=== PATIENT | male | born 1955 | race Hispanic/Latino ===

== ENCOUNTER → 2024-01-14 | Outpatient (CLI) | payer OTHER ==
[~2024-01-14] MED LIST: AMLO5TAB4 PO; CHOL100046 PO; FAMO40TA7 PO; Folic Acid/Vitamin B Comp W-C PO; HYDR25 PO; LEVO75CA5 PO; METO50 PO; SODI650T PO; SPIR25TA PO; Sevelamer Hcl PO; TAMS-1 PO
== END | disposition home or self-care (01) ==
LOC: SHCH 11:41
PROVIDERS: ATTEND Internal Medicine Cardiovascular Disease
DX: I51.7 Cardiomegaly (principal); R00.1 Bradycardia, unspecified
CPT/HCPCS: 93306

== ENCOUNTER 2024-06-26 12:24 | Emergency (ER) | payer OTHER ==
[~2024-06-26] VITALS: Ht 177.8 cm; Wt 67.1 kg
[2024-06-26] MEDS ORDERED: AMOX1TAB16 PO (13:21)
[2024-06-26] MEDS ORDERED: CIPOTIC AD (13:21)
[2024-06-26 13:30] VITALS: BP 141/85; PULSE 60; RESP 20; O2SAT 99
== END 2024-06-26 14:08 | disposition home or self-care (01) ==
LOC: EDH 12:24
DX: H60.91 Unspecified otitis externa, right ear (principal); I10 Essential (primary) hypertension; Z79.899 Other long term (current) drug therapy; Z98.890 Other specified postprocedural states

== ENCOUNTER 2025-07-30 11:12 | Observation (INO) | payer OTHER ==
[~2025-07-30] VITALS: Ht 177.8 cm; Wt 65.9 kg
[~2025-07-30 11:12] MED LIST changes: +AMOX1TAB16 PO; +CIPOTIC AD; -LEVO75CA5 PO; +LEVO75CA6 PO; -TAMS-1 PO; +TAMS-55 PO
[2025-07-30 11:44] LABS: IMMATURE GRANULOCYTE ABSOLUTE 0.02 K/uL (0-1); NUCLEATED RED BLOOD CELLS 0.0 % (0.0-0.19); PLATELET COUNT (AUTO) 123 K/uL (130-400); RED BLOOD CELL COUNT(AUTO) 2.57 MIL/uL (4.50-6.20); RED CELL DISTRIBUTION WIDTH 15.6 % (11.0-15.5); WHITE BLOOD COUNT (AUTO) 4.7 K/uL (4.8-10.8)
[2025-07-30 12:12] LABS: GLOMERULAR FILTR. RATE CALC 4.0 mL/min (>90); GLUCOSE,RANDOM 140.0 mg/dL (70-105); SODIUM SERUM 134.0 mmol/L (136-145)
--- NOTE | 2025-07-30 12:24 | ERN ---
ED Note History of Present Illness Stated Complaint: SOB Chief Complaint: Shortness of Breath Time Seen by MD: 11:28 Time Seen by Midlevel: 11:30 Dictation: 70-year-old male with a history of hypertension, diabetes, polycystic kidney disease coming in with complaints of shortness a breath ongoing for one month. Patient states he had his PCP when the O2 sats were low and was sent here for further evaluation. Patient is complaining of bilateral leg swelling, shortness a breath on exertion. Patient states he is not on dialysis. Denies any fever, congestion, chest pain, chest discomfort. Allergies: Coded Allergies: No Known Allergies (Unverified Allergy, Unknown, 07/10/23) Home Meds Active Scripts Amoxicillin/Potassium Clav (Amox Tr-K Clv 875-125 mg Tab) 875 Mg-125 Mg Tablet, 1 EACH PO BID for 7 Days, #14 TAB 0 Refills Prov:CONNER LI 06/26/24 Ciprofloxacin/Hydrocortisone (Cipro Hc Otic Suspension) 0.2 %-1 % Drops.susp, 4 DROP AD BID for 5 Days, #10 ML Prov:CONNER LI 06/26/24 Sodium Bicarbonate (Sodium Bicarbonate) 650 Mg Tablet, 650 MG PO TID, #90 TAB 1 Refill Prov:SHAYY SIGALA MD 07/12/23 [Sevelamer Hcl] 800 MG/TAB TABLET No Conflict Check, 800 MG PO TIDMEALS, #90 1 Refill Prov:SHAYY SIGALA MD 07/12/23 Metoprolol Tartrate (Lopressor 50Mg Tab) 50 Mg Tab, 50 MG PO BID, #60 TAB 1 Refill Prov:SHAYY SIGALA MD 07/12/23 Hydralazine HCl (Apresoline) 25 Mg Tab, 25 MG PO TID, #90 TAB 1 Refill Prov:SHAYY SIGALA MD 07/12/23 [Folic Acid/Vitamin B Comp W-C] 1 CAP TAB No Conflict Check, 1 CAP PO Q24H, #30 1 Refill Prov:SHAYY SIGALA MD 07/12/23 Amlodipine Besylate (Norvasc 5Mg Tab) 5 Mg Tablet, 10 MG PO DAILY, #30 TAB 1 Refill Prov:SHAYY SIGALA MD 07/12/23 Sodium Bicarbonate (Sodium Bicarbonate) 650 Mg Tablet, 650 MG PO TID, #90 TAB 1 Refill Prov:SHAYY SIGALA MD 07/12/23 Reported Medications Cholecalciferol (Vitamin D3) (Vitamin D3) 25 Mcg Capsule, 25 MCG PO DAILY, CAP 07/10/23 Levothyroxine Sodium (Levothyroxine) 75 Mcg Capsule, 75 MCG PO DAILY, CAP 07/10/23 Spironolactone (Aldactone) 25 Mg Tablet, 12.5 MG PO DAILY, TAB 07/10/23 Tamsulosin HCl (Flomax) 0.4 Mg Cap.er.24h, 0.4 MG PO DAILY, CAPSULE.DR 07/10/23 Famotidine (Famotidine) 40 Mg Tablet, 40 MG PO DAILY, TAB 07/10/23 Past Medical History Past Medical History: Hypertension, Kidney Infection Additional Past Medical Hx: PKD Surgical History: Other Surgical History Other: HERNIATED DISC, HERNIA Social History: Negative, Lives with family Review of System Dictation Constitutional: Negative for fever,chills, and weight loss Eyes: Negative for injury, pain,redness, and discharge ENT: Negative for injury,pain or swelling Cardiovascular: Negative for chest pain, palpitations, and edema Respiratory: Complaining of shortness a breath Abdomen/GI: Negative for abdominal pain, nausea, vomiting, diarrhea, and constipation Back: Negative for injury and pain : Negative for injury, bleeding and discharge MS/Extremity: Negative for injury and deformity Skin: Negative for rash, and discoloration Neuro: Negative for headache, weakness, numbness, tingling, and seizure Psych: Negative for suicide ideation, homicidal ideation, and hallucinations Review of Systems: was completed Initial Vital Sign VS Vital Signs Date Time Temp Pulse Resp B/P (MAP) Pulse Ox O2 Delivery O2 Flow Rate FiO2 07/30/25 11:16 98.2 98 22 148/84 99 Room Air 07/30/25 12:42 0 21 Physical Exam Dictation General: awake, alert, NAD Head/Face: Normocephalic, atraumatic Eyes: PERRL, EOMI, vision at baseline, PERRLA, mild periorbital edema ENT: oral cavity clear, TMs clear, no signs of infection Neck: Trachea midline, supple, no nuchal rigidity Cardiovascular: RRR, normal S1/S2, No MRGs, no JVD, bilateral lower leg plus two pitting edema Respiratory: CTAB, no respiratory distress, No rales or wheezes Abdomen: Soft, non-tender, non-distended, normal bowel sounds, no guarding or rebound. Skin: Warm, dry, normal turgor, no rash MS/Extremity: Pulses equal, no cyanosis, neurovascular intact, FROM Neuro: COAx4, GCS 15, strength 5/5, CN 2-12 intact, normal cerebellar exam, normal gait, Psych: Normal behavior, mood, and affect normal Results (Laboratory/Radiology) Laboratory/Radiology Laboratory Tests Test 07/30/25 11:40 White Blood Count 4.7 K/uL (4.8-10.8) L Red Blood Count 2.57 MIL/uL (4.50-6.20) L Hemoglobin 7.2 g/dL (14.0-18.0) L Hematocrit 22.2 % (42-54) L Mean Corpuscular Volume 86.4 fL (79-99) Mean Corpuscular Hemoglobin 28.0 pg (27.0-33.0) Mean Corpuscular Hemoglobin Concent 32.4 g/dL (32.0-36.0) Red Cell Distribution Width 15.6 % (11.0-15.5) H Platelet Count 123 K/uL (130-400) L Mean Platelet Volume 10.5 fL (7.5-10.5) Immature Granulocyte % (Auto) 0.4 % (0-1) Neutrophils (%) (Auto) 77.8 % (40.0-77.0) H Lymphocytes (%) (Auto) 10.1 % (21.0-51.0) L Monocytes (%) (Auto) 7.7 % (3.0-13.0) Eosinophils (%) (Auto) 3.6 % (0.0-8.0) Basophils (%) (Auto) 0.4 % (0.0-5.0) Neutrophils # (Auto) 3.6 K/uL (1.8-7.7) Lymphocytes # (Auto) 0.5 K/uL (1.0-4.8) L Monocytes # (Auto) 0.4 K/uL (0.1-1.0) Eosinophils # (Auto) 0.17 K/uL (0.00-0.70) Basophils # (Auto) 0.02 K/uL (0.00-0.20) Absolute Immature Granulocyte (auto 0.02 K/uL (0-1) Nucleated Red Blood Cells 0.0 % (0.0-0.19) Sodium Level 134 mmol/L (136-145) L Potassium Level 4.1 mmol/L (3.5-5.1) Chloride Level 99 mmol/L (101-111) L Carbon Dioxide Level 13 mmol/L (21-32) L Blood Urea Nitrogen 117 mg/dL (7-18) *H Creatinine 12.4 mg/dL (0.5-1.3) *H Glomerular Filtration Rate Calc 4 mL/min (>90) Random Glucose 140 mg/dL (70-105) H Total Calcium 7.1 mg/dL (8.5-10.1) L B-Type Natriuretic Peptide 750 pg/mL (0-100) H Labs Reviewed?: Yes EKG Comment: EKGs done at 11:36 a.m.. Sinus or ectopic atrial rhythm with a rate of 73. Incomplete RBBB. No STEMI interpreted by ER MD X-RAY Comment: [place] [id number] [id number] IMAGING REPORT Signed PATIENT: ESMER HYDE MR#: [id number] : 1955 SEX: M AGE: 70 LOCATION: [facility] ORDER [id number] STATUS: REG ER REPORT#: [id number] SERVICE 1128 REASON: SOB ORDERING PHYSICIAN: MARYLOU DARNELL NP PROCEDURE: CXR1VW - CHEST 1VW EXAM: CR Chest, 1 View. CLINICAL HISTORY: SOB COMPARISON: 07/10/23 16:25 EDT CR - CHEST 1VW FINDINGS: LUNGS: There is no mass, infiltrate, or acute pulmonary abnormality. PLEURAL SPACES: No pleural effusion or pneumothorax. MEDIASTINUM: Mild to moderate cardiomegaly. Mediastinal contours within normal limits. BONES: No acute osseous abnormality. IMPRESSION: No acute cardiopulmonary pathology is evident. Mild to moderate cardiomegaly. /[place] DICTATED BY: FREDA CHARLES Jr., MD DATE: 07/30/251415 ELECTRONICALLY SIGNED BY: FREDA CHARLES Jr., MD DATE: 07/30/251415 ED Course ED Course Orders Procedure Category Date Status Time Cbc With Differential LAB 07/30/25 Complete 11:28 Basic Metabolic Panel LAB 07/30/25 Complete 11:28 B-Type Natriuretic LAB 07/30/25 Complete Peptide 11:28 Chest 1vw RAD 07/30/25 Resulted 11:28 12 Lead Ekg Tracing- EKG 07/30/25 Complete Technical 11:28 Type And Screen BBK 07/30/25 Logged 13:33 Furosemide 40mg Vial PHA 07/30/25 Complete (Lasix 40mg Vial) 13:33 Nephrology Consult CONPHYSVC 07/30/25 Transmitted 13:36 Rbc-No Active Bleeding BBK 07/30/25 Logged 13:36 Current Medications Medications (Trade) Dose Ordered Sig/Curly Route PRN Reason Start Time Stop Time Status Last Admin Dose Admin Furosemide (LASix 40MG VIAL) 40 mg ONCE STAT IV 07/30/25 13:33 07/30/25 13:39 DC Vital Signs Date Time Temp Pulse Resp B/P (MAP) Pulse Ox O2 Delivery O2 Flow Rate FiO2 07/30/25 12:42 98.2 98 20 141/82 99 Room Air* 0 21 07/30/25 11:16 98.2 98 22 148/84 99 Room Air Medical Decision Making MDM MDM: 70-year-old male with a history of hypertension, diabetes, polycystic kidney disease coming in with complaints of shortness a breath ongoing for one month. Patient states he had his PCP when the O2 sats were low and was sent here for further evaluation. Patient is complaining of bilateral leg swelling, shortness a breath on exertion. Patient states he is not on dialysis. Denies any fever, congestion, chest pain, chest discomfort. CBC shows leukocytopenia, normocytic anemia hemoglobin of 7.2 and a hematocrit is 22. Thrombocytopenia at 123. Chemistry shows mild hyponatremia at 1:34 a.m.. Elevated BUN and creatinine creatinine is 12 and BUN is 117. This is consistent with the patient's previous history of polycystic kidney disease however has worsened from previous visit few years ago. BNP is 750. Lasix ordered in the emergency room along with 1 unit of PRBCs. Thirteen 40 spoke to cotton sampler on-call mare Shah to give him blood transfusion and admit patient and they will consult with the him up stairs. 1352 spoke to HEALTH SAFETY SPECIALIST for hospitalist team. Okay to admit. Differential diagnosis: Fluid overload, anemia, electrolyte abnormality, ESRD Rationale: Tests considered and ordered secondary to shared decision making include: labs, ECG and radiology Previous outside records reviewed: Old ER visits. Risk of complication and/or morbidity or mortality of patient management: None Medications-Per medication reconciliation Need for hospitalization: Patient does meet criteria for hospitalization. Need for emergency major/minor surgery: No There are no social concerns with this patient. Prescription drug management Prescriptions will include symptomatic care Patient's prior external medical records from other ER visits were reviewed by me as indicated. Prior testing and results from previous visits were reviewed. Prior tests were taken into account with medical decision making and resource utilization, independent historian/historians were used to obtain complete medical history. I independently interpreted the test that were performed, results were reviewed by me and considered findings on radiology if ordered. Medical management and examination interpretation discussions were had by me with other qualified healthcare professionals as indicated for the patient's care. DX & DISP Disposition: Inpatient Decision to Admit Date: Jul 30, 2025 Decision to Admit Time: 13:53 Departure Impression: Primary Impression: Polycystic kidney disease Additional Impressions: Anemia, Fluid overload, Shortness of breath Condition: Stable Referrals: AYDIN DUGAN (PCP) I have reviewed the case, and I agree with, Diagnosis and Plan MARYLOU DARNELL NP Jul 30, 2025 12:24
[2025-07-30 12:36] LABS: CREATININE 12.4 mg/dL (0.5-1.3); UREA NITROGEN, BLOOD 117.0 mg/dL (7-18)
--- NOTE | 2025-07-30 13:02 | EKG ---
[facility] Test Date: 2025-07-30 Test Time: 11:36:35 Pat Name: ESMER HYDE Department: EDH Room: ED Gender: M Manager Asset: [id number] : 1955 Requested By: MARYLOU DARNELL Order Number: [id number] Reading MD: Davis Hubbard Measurements Intervals [place] Rate: 73 P: 249 FL: 151 QRS: -40 QRSD: 108 T: 29 QT: 449 QTc: 493 Interpretive Statements Sinus or ectopic atrial rhythm Incomplete RBBB and LAFB Compared to ECG 07/10/2023 10:50:47 Ectopic atrial rhythm now present Sinus rhythm no longer present Electronically Signed On 07-30-2025 20:29:41 CDT by Davis Hubbard Please click the below link to view image of tracing.
--- NOTE | 2025-07-30 13:17 | HMCIMG ---
EXAM: CR Chest, 1 View. CLINICAL HISTORY: SOB COMPARISON: 07/10/23 16:25 EDT CR - CHEST 1VW FINDINGS: LUNGS: There is no mass, infiltrate, or acute pulmonary abnormality. PLEURAL SPACES: No pleural effusion or pneumothorax. MEDIASTINUM: Mild to moderate cardiomegaly. Mediastinal contours within normal limits. BONES: No acute osseous abnormality. IMPRESSION: No acute cardiopulmonary pathology is evident. Mild to moderate cardiomegaly. /[place]
[2025-07-30] MEDS ORDERED: MAGNESIUM 2GM PREMIX 50ML 50 ML IV PRN (14:00)
[2025-07-30] MEDS ORDERED: GLUCAGON 1MG KIT 1 MG ML IM PRN (14:00)
[2025-07-30] MEDS ORDERED: DEXTROSE 50%-WATER 50 ML DISP.SYRIN IV PRN (14:00)
--- NOTE | 2025-07-30 14:00 | NUR ---
DR ADLER AT BEDSIDE
--- NOTE | 2025-07-30 14:21 | HP ---
[facility] HISTORY AND PHYSICAL Date of Service: Jul 30, 2025 Time of Service: 14:[address] Bowman Allergies : NKA Attending : Dr Aiken HISTORY OF PRESENT ILLNESS: [ Pt is 69 years old male with past medical history of DM, Htn, hld, polycystic kidney disease, CKD refusing dialysis, BPH, hypothyroidism, , lower back sx, sinusitis, who came to ER with complain of shortness of breath for past 1 month. As per pt, he was at his PCP, where he was advised to go to ER for further evaluation of SOB and possibly blood transfusion. Patient is also complaining of bilateral leg swelling. Patient stated that he is not on dialysis, and refuses. Patient denies any fever, congestion, chest pain or any other discomfort other than SOB. Most recent VS 98.2 F, Pulse 98, respiratory 20, BP 141/82.Na 134 K 4.1 CO2 13 [id number] Cr12.4 GFR 4 Glucose 140 BNP 750 WBC 4.7 Hgb 7.2 Hct 22.2 Pltt 123 CXRAy mild to moderate cardiomegaly. Pt will be admitted under hospitalist care for further evaluation and recommendations. Dr Smith denitrator operator was consulted for CKD in need of dialysis.] REVIEW OF SYSTEMS CONSTITUTIONAL: Denies fevers, chills, or night sweats. No unintentional weight loss reported. NEUROLOGICAL: Denies headache, amaurosis fugax, motor weakness, sensory deficit, vertigo/spinning sensation, gait abnormalities, or tremors. ENT: No hearing loss, otalgia, otorrhea, rhinitis, rhinorrhea, hoarseness, or sore throat. CARDIOVASCULAR: Denies any exertional angina, dyspnea on exertion, orthopnea, paroxysmal nocturnal dyspnea, palpitations, life-threatening arrhythmias, claudication. PULMONARY: Denies any cough, phlegm/sputum, hemoptysis, pleuritic chest pain. Complains of shortness of breath SLEEP: Denies morning headaches, daytime somnolence or napping. Denies difficulty falling asleep, staying asleep, waking from sleep. Denies knowledge of snoring. GASTROINTESTINAL: Denies any type of dysphagia to either liquids or solids. Denies nausea, vomiting, pyrosis, early satiety, abdominal pain, diarrhea, constipation, or changes in stool consistency or caliber. Denies coffee-ground emesis, hematemesis, hematochezia, or melanotic stools. GENITOURINARY: Denies frequency, urgency, nocturia, hematuria or incontinence (Storage/Irritative symptoms.) Low urinary stream, straining to void, urinary intermittency or hesitancy, splitting of the voiding stream, terminal dribbling. ENDOCRINOLOGIC: Denies polyuria, polydipsia, polyphagia or heat/cold intolerances. HEMATOLOGIC: Denies thrombophilia/previous clots, or coagulopathy/bleeding disorders. ONCOLOGIC: Denies personal history of malignancy. DERMATOLOGIC: Denies rashes or pruritus. PSYCHIATRIC: Denies any suicidal or homicidal ideation. Denies hallucinations. PAST MEDICAL HISTORY: [ Htn, Hld, policystic KD, BPH, hypothyroidism, maxillary sinusitis ] PAST SURGICAL HISTORY: [ lower back pain sx for herniated disc in 1989 ] PAST SOCIAL HISTORY: [ PAtient denies smoking, drug illicit, drug illicit ] FAMILY HISTORY: [denies any ] Coded Allergies: No Known Allergies (Unverified Allergy, Unknown, 07/10/23) PHYSICAL EXAM GENERAL APPEARANCE: The patient is awake, alert, and oriented, in no acute cardiopulmonary distress. NEUROLOGICAL: Cranial nerves II-XII grossly intact. Motor is 5/5 in bilateral upper and lower extremities proximal to distal. No sensory deficits. HEENT: Face is symmetric. Pupils are equal and reactive. Extraocular movements are intact. NECK: Supple. No JVD. No thyromegaly. No submental, submandibular, pre- /postauricular, occipital or supraclavicular lymphadenopathy. CHEST: Normal chest expansion. No Telemetry. LUNGS: Absence of any rales, rhonchi or any wheezing. CARDIOVASCULAR: Regular. S1 and S2 normal. No appreciable rubs, murmurs or gallops. ABDOMEN: Soft, nontender, and nondistended. There is no rebound, voluntary guarding, or rigidity. : Deferred. No Alexander. EXTREMITIES: Non-edematous and not cyanotic. No clubbing. Good capillary refill. SKIN: No skin breakdown. Vital Sign (Last 24 Hours) 07/30/25 12:42 Temp 98.2 Pulse 98 Resp 20 B/P (MAP) 141/82 Pulse Ox 99 O2 Delivery Room Air* O2 Flow Rate 0 FiO2 21 LABS: Laboratory: Test 07/30/25 11:40 Range/Units White Blood Count 4.7 L 4.8-10.8 K/uL Red Blood Count 2.57 L 4.50-6.20 MIL/uL Hemoglobin 7.2 L 14.0-18.0 g/dL Hematocrit 22.2 L 42-54 % Mean Corpuscular Volume 86.4 79-99 fL Mean Corpuscular Hemoglobin 28.0 27.0-33.0 pg Mean Corpuscular Hemoglobin Concent 32.4 32.0-36.0 g/dL Red Cell Distribution Width 15.6 H 11.0-15.5 % Platelet Count 123 L 130-400 K/uL Mean Platelet Volume 10.5 7.5-10.5 fL Immature Granulocyte % (Auto) 0.4 0-1 % Neutrophils (%) (Auto) 77.8 H 40.0-77.0 % Lymphocytes (%) (Auto) 10.1 L 21.0-51.0 % Monocytes (%) (Auto) 7.7 3.0-13.0 % Eosinophils (%) (Auto) 3.6 0.0-8.0 % Basophils (%) (Auto) 0.4 0.0-5.0 % Neutrophils # (Auto) 3.6 1.8-7.7 K/uL Lymphocytes # (Auto) 0.5 L 1.0-4.8 K/uL Monocytes # (Auto) 0.4 0.1-1.0 K/uL Eosinophils # (Auto) 0.17 0.00-0.70 K/uL Basophils # (Auto) 0.02 0.00-0.20 K/uL Absolute Immature Granulocyte (auto 0.02 0-1 K/uL Nucleated Red Blood Cells 0.0 0.0-0.19 % Sodium Level 134 L 136-145 mmol/L Potassium Level 4.1 3.5-5.1 mmol/L Chloride Level 99 L 101-111 mmol/L Carbon Dioxide Level 13 L 21-32 mmol/L Blood Urea Nitrogen 117 *H 7-18 mg/dL Creatinine 12.4 *H 0.5-1.3 mg/dL Glomerular Filtration Rate Calc 4 >90 mL/min Random Glucose 140 H 70-105 mg/dL Total Calcium 7.1 L 8.5-10.1 mg/dL B-Type Natriuretic Peptide 750 H 0-100 pg/mL Current Medications Medications (Trade) Dose Ordered Sig/Curly Route PRN Reason Start Time Stop Time Status Last Admin Dose Admin Acetaminophen (TYLenol 325MG TAB) 650 mg Q4H PRN PO MILD PAIN (1-3) 07/30/25 14:30 08/29/25 14:29 Acetaminophen (TYLenol 325MG TAB) 650 mg Q6H PRN PO TEMPERATURE GREATER THAN 101.5 07/30/25 14:30 08/29/25 14:29 Al Hydroxide/Mg Hydroxide (MAALox PLUS 30ML) 30 ml Q6H PRN PO INDIGESTION 07/30/25 14:30 08/29/25 14:29 Dextrose (D50w) 50 ml AD PRN IV HYPOGLYCEMIA PROTOCOL 07/30/25 14:00 08/29/25 13:59 Diphenhydramine HCl (BENAdryl INJ) 25 mg Q6H PRN IV SEVERE ITCHING/RASH 07/30/25 14:30 08/29/25 14:29 Famotidine (Pepcid 20mg Vial) 20 mg BID PRN IV NAUSEA/VOMITING 07/30/25 14:30 07/30/25 14:11 DC Famotidine (Pepcid 20mg Vial) 20 mg Q48H IV 07/30/25 21:00 08/29/25 20:59 Furosemide (LASix 40MG VIAL) 40 mg ONCE STAT IV 07/30/25 13:33 07/30/25 13:39 DC 07/30/25 14:01 40 MG Glucagon (Glucagon 1mg Kit) 1 mg AD PRN IM HYPOGLYCEMIA PROTOCOL 07/30/25 14:00 08/29/25 13:59 Guaifenesin/ Dextromethorphan (RobiTUSSin DM 200/20MG 10ML) 10 ml Q4H PRN PO COUGH 07/30/25 14:30 08/29/25 14:29 Hydralazine HCl (APRESOLine 20MG INJ) 10 mg Q6H PRN IV For:SBP above 160;DBP above 90 07/30/25 14:30 08/29/25 14:29 Insulin Human Regular (humuLIN R 100 UNIT/ML 3ML) INSULIN SLIDING SCAL... ACHS SQ 07/30/25 16:30 08/29/25 16:29 Lactulose (Constulose 20gm/ 30ml Udcup) 20 gm BID PRN PO CONSTIPATION 07/30/25 14:30 08/29/25 14:29 Magnesium Sulfate 50 ml @ 0 mls/hr PROTOCOL PRN IV other 07/30/25 14:00 08/29/25 13:59 Nitroglycerin (Nitrostat) 0.4 mg PROTOCOL PRN SL CHEST PAIN 07/30/25 14:30 08/29/25 14:29 Ondansetron HCl (zoFRAN 4MG INJ) 4 mg Q6H PRN IV NAUSEA/VOMITING 07/30/25 14:30 08/29/25 14:29 Zolpidem Tartrate (AmbIEN) 5 mg HS PRN PO INSOMNIA 07/30/25 14:30 08/29/25 14:29 DIAGNOSTICS / RADIOLOGY: [ ] ASSESSMENT: [ Acute hypoxic Respiratory Failure POA Fluid Overload POA loida on CKD in need of dialysis POA acute blood loss requiring 1 prbc transfusion POA multifactorial anemia POA uncontrolled hypertension POA electrolite imbalance Na 134 POA polycystic kidney disease POA hypothyroidism POA maxillry sinusis BPH ] PLAN: [ Patient admitted to medical-surgical floor with telemetry Director Information consulted for possible dialysis A.m. labs Urinalysis pending Urine culture pending Chest x-ray showed mild to moderate cardiomegaly 2D echo pending One PRBC to be completed in ER during admission PT ordered Case management ordered PRN medication ordered Home medication to be reconciled once entered by RN to the system ] 1 prbc transfusion 07/30/25 in er ADVANCED CARE PLANNING 1. Which of the following were discussed? Hospice Care - Yes / No Therapeutic options - Yes / No Advance Directives - Yes / No Other discussions - 2. Discussed with who? Patient 3. Voluntary nature of this service was explained to the patient? Yes / No 4. Amount of time spent - __ more than 35 minutes 5. Reviewed by Physician? (if this service was performed by NPP) Yes / No ATTESTATION BY PHYSICIAN I have seen and examined the patient. I reviewed the documentation, medical decision making, and treatment plan as noted by the mid-level provider above. I agree with the findings and plan of care. SHAYY AIKEN MD, KATARZYNA B TELESCOPE REPAIRER Jul 30, 2025 14:21
[2025-07-30] MEDS ORDERED: guaiFENesin-DM 200/20MG 10ML PO PRN (14:30)
[2025-07-30] MEDS ORDERED: LACTULOSE 20 GM/30 ML UDCUP PO PRN (14:30)
[2025-07-30] MEDS ORDERED: MAG/ALUM/SIMETH 30 ML UDCUP PO PRN (14:30)
[2025-07-30] MEDS ORDERED: NITROGLYCERIN 0.4 MG SL TAB SL PRN (14:30)
[2025-07-30] MEDS ORDERED: FAMOTIDINE 20MG VIAL IV PRN (14:30)
--- NOTE | 2025-07-30 14:54 | CONS ---
NEPHROLOGY CONSULTATION NOTE Date/Time Patient Seen: Jul 30, 2025 2066 Reason for Consultation: Renal failure HISTORY OF PRESENT ILLNESS: This is a 69 years old male with past medical history of DM, Htn, hld, polycystic kidney disease, CKD, BPH, hypothyroidism, , lower back sx, sinusitis, He presented to the ER with complain of shortness of breath for past 1 month. As per pt, he was at his PCP, where he was advised to go to ER for further evaluation of SOB and possibly blood transfusion. Patient is also complaining of bilateral leg swelling. Patient stated that he is not on dialysis, and refuses. Patient denies any fever, congestion, chest pain or any other discomfort other than SOB. We are consulted for renal failure Renal function remains elevated Electrolytes are stable. Anemia was noted He was seen in the emergency room, continues to complain of shortness of breath Family at the bedside Prognosis remains guarded REVIEW OF SYSTEMS: GENERAL: Positive for shortness of breath and lower extremity edema NEUROLOGIC: Negative for any blurry vision, blind spots, double vision, facial asymmetry, dysphagia, dysarthria, hemiparesis, hemisensory deficits, vertigo, ataxia. HEENT: Negative for any head trauma, neck trauma, neck stiffness, photophobia, phonophobia, sinusitis, rhinitis. CARDIAC: Negative for any chest pain, dyspnea on exertion, paroxysmal nocturnal dyspnea, peripheral edema. PULMONARY: Negative for any shortness of breath, wheezing, COPD, or TB exposure. GASTROINTESTINAL: Negative for any abdominal pain, nausea, vomiting, bright red blood per rectum, melena. GENITOURINARY: Negative for any dysuria, hematuria, incontinence. INTEGUMENTARY: Negative for any rashes, cuts, insect bites. RHEUMATOLOGIC: Negative for any joint pains, photosensitive rashes, history of vasculitis or kidney problems. HEMATOLOGIC: Negative for any abnormal bruising, frequent infections or bleeding. PAST MEDICAL HISTORY: DM, hypertension, hyperlipidemia, polycystic kidney disease, CKD PAST SURGICAL HISTORY: Back surgery for herniated disc PAST SOCIAL HISTORY: Denies use of alcohol, tobacco or illicit drugs FAMILY HISTORY: Noncontributory PHYSICAL EXAM: GENERAL: Alert and oriented x 3. No acute distress. Well-nourished. EYES: EOMI. Anicteric. HENT: Moist mucous membranes. No scleral icterus. No cervical lymphadenopathy. LUNGS: Clear to auscultation bilaterally. No accessory muscle use. CARDIOVASCULAR: Regular rate and rhythm. No murmur. No JVD. ABDOMEN: Soft, non-tender and non-distended. No palpable masses. EXTREMITIES: No edema. Non-tender. SKIN: No rashes or lesions. Warm. NEUROLOGIC: No focal neurological deficits. CN II-XII grossly intact, but not individually tested. PSYCHIATRIC: Cooperative. Appropriate mood and affect. MEDICATIONS: [ ] Current Medications Medications (Trade) Dose Ordered Sig/Curly Route PRN Reason Start Time Stop Time Status Last Admin Dose Admin Acetaminophen (TYLenol 325MG TAB) 650 mg Q4H PRN PO MILD PAIN (1-3) 07/30/25 14:30 08/29/25 14:29 Acetaminophen (TYLenol 325MG TAB) 650 mg Q6H PRN PO TEMPERATURE GREATER THAN 101.5 07/30/25 14:30 08/29/25 14:29 Al Hydroxide/Mg Hydroxide (MAALox PLUS 30ML) 30 ml Q6H PRN PO INDIGESTION 07/30/25 14:30 08/29/25 14:29 Dextrose (D50w) 50 ml AD PRN IV HYPOGLYCEMIA PROTOCOL 07/30/25 14:00 08/29/25 13:59 Diphenhydramine HCl (BENAdryl INJ) 25 mg Q6H PRN IV SEVERE ITCHING/RASH 07/30/25 14:30 08/29/25 14:29 Famotidine (Pepcid 20mg Vial) 20 mg BID PRN IV NAUSEA/VOMITING 07/30/25 14:30 07/30/25 14:11 DC Famotidine (Pepcid 20mg Vial) 20 mg Q48H IV 07/30/25 21:00 08/29/25 20:59 Furosemide (LASix 40MG VIAL) 40 mg ONCE STAT IV 07/30/25 13:33 07/30/25 13:39 DC 07/30/25 14:01 40 MG Glucagon (Glucagon 1mg Kit) 1 mg AD PRN IM HYPOGLYCEMIA PROTOCOL 07/30/25 14:00 08/29/25 13:59 Guaifenesin/ Dextromethorphan (RobiTUSSin DM 200/20MG 10ML) 10 ml Q4H PRN PO COUGH 07/30/25 14:30 08/29/25 14:29 Hydralazine HCl (APRESOLine 20MG INJ) 10 mg Q6H PRN IV For:SBP above 160;DBP above 90 07/30/25 14:30 08/29/25 14:29 Insulin Human Regular (humuLIN R 100 UNIT/ML 3ML) INSULIN SLIDING SCAL... ACHS SQ 07/30/25 16:30 08/29/25 16:29 Lactulose (Constulose 20gm/ 30ml Udcup) 20 gm BID PRN PO CONSTIPATION 07/30/25 14:30 08/29/25 14:29 Magnesium Sulfate 50 ml @ 0 mls/hr PROTOCOL PRN IV other 07/30/25 14:00 08/29/25 13:59 Nitroglycerin (Nitrostat) 0.4 mg PROTOCOL PRN SL CHEST PAIN 07/30/25 14:30 08/29/25 14:29 Ondansetron HCl (zoFRAN 4MG INJ) 4 mg Q6H PRN IV NAUSEA/VOMITING 07/30/25 14:30 08/29/25 14:29 Zolpidem Tartrate (AmbIEN) 5 mg HS PRN PO INSOMNIA 07/30/25 14:30 08/29/25 14:29 Vital Signs (last 8hr) Date Time Temp Pulse Resp B/P (MAP) Pulse Ox O2 Delivery O2 Flow Rate FiO2 07/30/25 14:39 98.2 74 20 158/81 99 Room Air* 0 21 07/30/25 12:42 98.2 98 20 141/82 99 Room Air* 0 21 07/30/25 11:16 98.2 98 22 148/84 99 Room Air DIAGNOSTICS / RADIOLOGY: [place] [id number] IMAGING REPORT Signed PATIENT: ESMER HYDE MR#: [id number] : 1955 SEX: M AGE: 70 LOCATION: [facility] ORDER 1130 STATUS: REG ER REPORT#: [id number] SERVICE 1128 REASON: SOB ORDERING PHYSICIAN: MARYLOU DARNELL NP PROCEDURE: CXR1VW - CHEST 1VW EXAM: CR Chest, 1 View. CLINICAL HISTORY: SOB COMPARISON: 07/10/23 16:25 EDT CR - CHEST 1VW FINDINGS: LUNGS: There is no mass, infiltrate, or acute pulmonary abnormality. PLEURAL SPACES: No pleural effusion or pneumothorax. MEDIASTINUM: Mild to moderate cardiomegaly. Mediastinal contours within normal limits. BONES: No acute osseous abnormality. IMPRESSION: No acute cardiopulmonary pathology is evident. Mild to moderate cardiomegaly. /[place] DICTATED BY: FREDA CHARLES Jr., MD DATE: 07/30/251415 ELECTRONICALLY SIGNED BY: FREDA CHARLES Jr., MD DATE: 07/30/251415 LABORATORY: [ ] Hematology Labs: Test 07/30/25 11:40 Range/Units White Blood Count 4.7 L 4.8-10.8 K/uL Red Blood Count 2.57 L 4.50-6.20 MIL/uL Hemoglobin 7.2 L 14.0-18.0 g/dL Hematocrit 22.2 L 42-54 % Mean Corpuscular Volume 86.4 79-99 fL Mean Corpuscular Hemoglobin 28.0 27.0-33.0 pg Mean Corpuscular Hemoglobin Concent 32.4 32.0-36.0 g/dL Red Cell Distribution Width 15.6 H 11.0-15.5 % Platelet Count 123 L 130-400 K/uL Mean Platelet Volume 10.5 7.5-10.5 fL Immature Granulocyte % (Auto) 0.4 0-1 % Neutrophils (%) (Auto) 77.8 H 40.0-77.0 % Lymphocytes (%) (Auto) 10.1 L 21.0-51.0 % Monocytes (%) (Auto) 7.7 3.0-13.0 % Eosinophils (%) (Auto) 3.6 0.0-8.0 % Basophils (%) (Auto) 0.4 0.0-5.0 % Neutrophils # (Auto) 3.6 1.8-7.7 K/uL Lymphocytes # (Auto) 0.5 L 1.0-4.8 K/uL Monocytes # (Auto) 0.4 0.1-1.0 K/uL Eosinophils # (Auto) 0.17 0.00-0.70 K/uL Basophils # (Auto) 0.02 0.00-0.20 K/uL Absolute Immature Granulocyte (auto 0.02 0-1 K/uL Nucleated Red Blood Cells 0.0 0.0-0.19 % Chemistry Labs: Test 07/30/25 11:40 Range/Units Sodium Level 134 L 136-145 mmol/L Potassium Level 4.1 3.5-5.1 mmol/L Chloride Level 99 L 101-111 mmol/L Carbon Dioxide Level 13 L 21-32 mmol/L Blood Urea Nitrogen 117 *H 7-18 mg/dL Creatinine 12.4 *H 0.5-1.3 mg/dL Glomerular Filtration Rate Calc 4 >90 mL/min Random Glucose 140 H 70-105 mg/dL Total Calcium 7.1 L 8.5-10.1 mg/dL B-Type Natriuretic Peptide 750 H 0-100 pg/mL ASSESSMENT: Patient has worsening anemia shortness of breath renal failure and multiple comorbidities Anemia fluid overload and patient may have end-stage renal disease patient is noncompliant Acute on chronic renal failure Polycystic kidney disease Diabetes mellitus type 2 Hypertension Hyperlipidemia BPH Hypothyroidism PLAN: Labs, diagnostic, radiologic exams reviewed and interpreted by myself and supervising physician. We have reviewed external records in detail Patient is not ready to start renal replacement therapy at this time patient understand consequences including Preserve nondominant arm. Start Lasix 80 mg IV b.i.d. Start Nephro-Shoshana daily Order UA Require close monitoring of renal function and electrolytes Order CBC, CMP, uric acid, TSH, iron panel, ferritin, and electrolytes in am Renal diabetic diet BiPAP as necessary, for respiratory distress Monitor blood pressure adjust medication doses as needed Avoid hypotensive episodes May use Dilaudid 0.5 mg IV every 6 hours as needed for severe pain Monitor blood sugars Strict intake, output, and daily weight should be monitored Please renally adjust medications Avoid nephrotoxic and nonsteroidal drugs Avoid contrast if possible Will continue to monitor renal function, anemia, electrolytes Treatment plan discussed with patient Questions were answered We have discussed with the other team physicians in detail about the care plan We will continue to monitor the patient closely Thank you for allowing us to participate in the care of this patient ATTESTATION BY PHYSICIAN I have seen and examined the patient. I reviewed the documentation, medical decision making, and treatment plan as noted by the mid-level provider above. I agree with the findings and plan of care. BREONNA ADLER MD, ELIZABETH BOX PULLER Jul 30, 2025 14:54 BREONNA ADLER MD Aug 03, 2025 06:49
--- NOTE | 2025-07-30 14:56 | NUR ---
DCP: HOME met with pt and his daughter Kasi Marinelli [phone]. Pt lives a home with Fidelina Marinelli [phone]. Pt gets $20.00 in food stamps. Pt reports he has a difficult time completing his ADLS on his own, but does not want assistance just yet. Pt uses a cane "when I need to". Has no HH or HD services. Discussed SNF at [facility], pt is not open to it at this time. PCP is Williams Garcia and uses [facility] for rx. Addendum: 07/30/25 at 1505 by LACHO COX Amended: Links added.
[2025-07-30 14:57] LABS: APPEARANCE,URINE CLEAR (CLEAR); GLUCOSE, URINE (UA) 70 mg/dL (NEGATIVE); LEUKOCYTE ESTERASE ,URINE NEGATIVE Leu/uL (NEGATIVE); NITRATE,URINE NEGATIVE (NEGATIVE); OCCULT BLOOD,URINE +- (TRACE) (NEGATIVE)
[2025-07-30 15:05] LABS: SQUAMOUS EPITHELIAL CELL,UR RARE /HPF (0-2)
[2025-07-30 15:10] LABS: COVID19 (SARS ANTIGEN RAPID) PRESUMPTIVE NEGATIVE (NEGATIVE); INFLUENZA TYPE A Negative For Type A (NEGATIVE); INFLUENZA TYPE B Negative For Type B (NEGATIVE)
--- NOTE | 2025-07-30 21:30 | NUR ---
1 UNIT OF PRBCS TRANSFUSION COMPLETED AT THIS TIME, PATIENT IS IN NO DISTRESS
[2025-07-30] MEDS: FAMOTIDINE 20MG VIAL IV SCH (21:35)
[2025-07-30] MEDS ORDERED: CHOL200074 PO (22:18)
[2025-07-30] MEDS ORDERED: AMLO-258 PO (22:21)
[2025-07-30] MEDS ORDERED: METO-391 PO (22:21)
[2025-07-31 05:46] LABS: IMMATURE GRANULOCYTE ABSOLUTE 0.05 K/uL (0-1); NUCLEATED RED BLOOD CELLS 0.0 % (0.0-0.19); PLATELET COUNT (AUTO) 120 K/uL (130-400); RED BLOOD CELL COUNT(AUTO) 2.60 MIL/uL (4.50-6.20); RED CELL DISTRIBUTION WIDTH 15.7 % (11.0-15.5); WHITE BLOOD COUNT (AUTO) 5.7 K/uL (4.8-10.8)
[2025-07-31 07:18] LABS: % IRON SATURATION 16.0 % (30-44); IRON, SERUM 26.0 mcg/dL (65-175)
[2025-07-31 07:24] LABS: ASPARTATE AMINOTRANSFERASE 17.0 U/L (10-37); CREATINE KINASE, TOTAL 115.0 U/L (21-232); GLOMERULAR FILTR. RATE CALC 4.0 mL/min (>90); GLUCOSE,RANDOM 66.0 mg/dL (70-105); PHOSPHORUS 8.5 mg/dL (2.5-4.9); SODIUM SERUM 134.0 mmol/L (136-145); TOTAL PROTEIN, SERUM 6.7 g/dL (6.0-8.3)
[2025-07-31 07:26] LABS: CREATININE 12.2 mg/dL (0.5-1.3); UREA NITROGEN, BLOOD 118.0 mg/dL (7-18)
--- NOTE | 2025-07-31 08:47 | NUR ---
DR ZAID ARRIETA AT BEDSIDE
--- NOTE | 2025-07-31 08:50 | NUR ---
PT REQUESTING TO BE DNR. DR SIGALA AWARE AND AT BEDSIDE.
--- NOTE | 2025-07-31 08:51 | NUR ---
PT REFUSING DIALYSIS. FORM HAS BEEN SIGNED FOR TREATMENT REFUSAL.
[2025-07-31] MEDS ORDERED: CHOLECALCIFEROL PO SCH (09:00)
[2025-07-31] MEDS ORDERED: FAMOTIDINE 20MG TAB PO SCH (09:00)
[2025-07-31] MEDS: SODIUM BICARBONATE 650 MG TAB ONE (09:48)
[2025-07-31] MEDS: amLODIPine 5 MG TAB ONE (09:48)
[2025-07-31] MEDS: Vitamin B Complex/Vit C/Folic Acid PO SCH (10:00)
[2025-07-31] MEDS: (Cholecalciferol (Vitamin D3) 25 MCG) PO SCH (10:01)
[2025-07-31] MEDS: SODIUM BICARBONATE 650 MG TAB PO SCH (10:01)
[2025-07-31] MEDS: amLODIPine 5 MG TAB PO SCH (10:01)
--- NOTE | 2025-07-31 10:25 | PN ---
[facility] PROGRESS NOTE Date of Service: Jul 31, 2025 Time of Service: 10:[address] Sigala SUBJECTIVE: [ 07/30 [ Pt is 69 years old male with past medical history of DM, Htn, hld, polycystic kidney disease, CKD refusing dialysis, BPH, hypothyroidism, , lower back sx, sinusitis, who came to ER with complain of shortness of breath for past 1 month. As per pt, he was at his PCP, where he was advised to go to ER for further evaluation of SOB and possibly blood transfusion. Patient is also complaining of bilateral leg swelling. Patient stated that he is not on dialysis, and refuses. Patient denies any fever, congestion, chest pain or any other discomfort other than SOB. Most recent VS 98.2 F, Pulse 98, respiratory 20, BP 141/82.Na 134 K 4.1 CO2 13 [id number] Cr12.4 GFR 4 Glucose 140 BNP 750 WBC 4.7 Hgb 7.2 Hct 22.2 Pltt 123 CXRAy mild to moderate cardiomegaly. Pt will be admitted under hospitalist care for further evaluation and recommendations. Dr Smith party plan sales consultant was consulted for CKD in need of dialysis 07/31 Pt was seen by MODELING INSTRUCTOR and Physician in ER room. Pts co2 11 and CR BUN and GFR has worsened. Pt continues to refuse dialysis. Providers had an extensive conversation with patient regards refusing dialysis and goals of care. Patient stated that he would like to proceed with DNI and DNR. Patient was also evaluated by party plan sales consultant and we consulted hospice as per patient's request. CM consulted. DNI and DNR signed. ] REVIEW OF SYSTEMS CONSTITUTIONAL: Denies fevers, chills, or night sweats. No unintentional weight loss reported. NEUROLOGICAL: Denies headache, amaurosis fugax, motor weakness, sensory deficit, vertigo/spinning sensation, gait abnormalities, or tremors. ENT: No hearing loss, otalgia, otorrhea, rhinitis, rhinorrhea, hoarseness, or sore throat. CARDIOVASCULAR: Denies any exertional angina, dyspnea on exertion, orthopnea, paroxysmal nocturnal dyspnea, palpitations, life-threatening arrhythmias, claudication. PULMONARY: Denies any cough, phlegm/sputum, hemoptysis, pleuritic chest pain. Complains of shortness of breath SLEEP: Denies morning headaches, daytime somnolence or napping. Denies difficulty falling asleep, staying asleep, waking from sleep. Denies knowledge of snoring. GASTROINTESTINAL: Denies any type of dysphagia to either liquids or solids. Denies nausea, vomiting, pyrosis, early satiety, abdominal pain, diarrhea, constipation, or changes in stool consistency or caliber. Denies coffee-ground emesis, hematemesis, hematochezia, or melanotic stools. GENITOURINARY: Denies frequency, urgency, nocturia, hematuria or incontinence (Storage/Irritative symptoms.) Low urinary stream, straining to void, urinary intermittency or hesitancy, splitting of the voiding stream, terminal dribbling. ENDOCRINOLOGIC: Denies polyuria, polydipsia, polyphagia or heat/cold intolerances. HEMATOLOGIC: Denies thrombophilia/previous clots, or coagulopathy/bleeding disorders. ONCOLOGIC: Denies personal history of malignancy. DERMATOLOGIC: Denies rashes or pruritus. PSYCHIATRIC: Denies any suicidal or homicidal ideation. Denies hallucinations. PHYSICAL EXAM GENERAL APPEARANCE: The patient is awake, alert, and oriented, in no acute cardiopulmonary distress. NEUROLOGICAL: Cranial nerves II-XII grossly intact. Motor is 5/5 in bilateral upper and lower extremities proximal to distal. No sensory deficits. HEENT: Face is symmetric. Pupils are equal and reactive. Extraocular movements are intact. NECK: Supple. No JVD. No thyromegaly. No submental, submandibular, pre- /postauricular, occipital or supraclavicular lymphadenopathy. CHEST: Normal chest expansion. No Telemetry. LUNGS: Absence of any rales, rhonchi or any wheezing. CARDIOVASCULAR: Regular. S1 and S2 normal. No appreciable rubs, murmurs or gallops. ABDOMEN: Soft, nontender, and nondistended. There is no rebound, voluntary guarding, or rigidity. : Deferred. No Alexander. EXTREMITIES: Non-edematous and not cyanotic. No clubbing. Good capillary refill. SKIN: No skin breakdown. Vital Signs (last 8hr) Date Time Temp Pulse Resp B/P (MAP) Pulse Ox O2 Delivery O2 Flow Rate FiO2 07/31/25 08:28 98.1 70 18 137/67 98 Room Air* 0 21 07/31/25 06:46 98.8 78 17 150/77 98 Room Air* 0 21 07/31/25 05:18 98.8 75 17 150/82 97 Room Air* 0 21 07/31/25 03:07 98.8 75 16 129/69 96 Room Air* 0 21 LABS: Laboratory: Test 07/31/25 09:54 07/31/25 07:32 07/31/25 06:32 07/31/25 05:30 Range/Units Whole Blood Glucose 96 70-110 MG/DL Ammonia 15 11-32 umol/L Iron Level 26 L 65-175 mcg/dL Total Iron Binding Capacity 162 L 250-450 mcg/dL Percent Iron Saturation 16.0 L 30-44 % White Blood Count 5.7 4.8-10.8 K/uL Red Blood Count 2.60 L 4.50-6.20 MIL/uL Hemoglobin 7.4 L 14.0-18.0 g/dL Hematocrit 22.2 L 42-54 % Mean Corpuscular Volume 85.4 79-99 fL Mean Corpuscular Hemoglobin 28.5 27.0-33.0 pg Mean Corpuscular Hemoglobin Concent 33.3 32.0-36.0 g/dL Red Cell Distribution Width 15.7 H 11.0-15.5 % Platelet Count 120 L 130-400 K/uL Mean Platelet Volume 11.4 H 7.5-10.5 fL Immature Granulocyte % (Auto) 0.9 0-1 % Neutrophils (%) (Auto) 65.2 40.0-77.0 % Lymphocytes (%) (Auto) 17.3 L 21.0-51.0 % Monocytes (%) (Auto) 13.3 H 3.0-13.0 % Eosinophils (%) (Auto) 3.0 0.0-8.0 % Basophils (%) (Auto) 0.3 0.0-5.0 % Neutrophils # (Auto) 3.7 1.8-7.7 K/uL Lymphocytes # (Auto) 1.0 1.0-4.8 K/uL Monocytes # (Auto) 0.8 0.1-1.0 K/uL Eosinophils # (Auto) 0.17 0.00-0.70 K/uL Basophils # (Auto) 0.02 0.00-0.20 K/uL Absolute Immature Granulocyte (auto 0.05 0-1 K/uL Nucleated Red Blood Cells 0.0 0.0-0.19 % Sodium Level 134 L 136-145 mmol/L Potassium Level 4.2 3.5-5.1 mmol/L Chloride Level 101 101-111 mmol/L Carbon Dioxide Level 11 L 21-32 mmol/L Blood Urea Nitrogen 118 *H 7-18 mg/dL Creatinine 12.2 *H 0.5-1.3 mg/dL Glomerular Filtration Rate Calc 4 >90 mL/min Random Glucose 66 #L 70-105 mg/dL Lactic Acid Level 0.8 0.8-2.5 mmol/L Uric Acid 8.9 H 2.6-7.2 mg/dL Total Calcium 6.9 L 8.5-10.1 mg/dL Phosphorus Level 8.5 H 2.5-4.9 mg/dL Magnesium Level 2.10 1.80-2.40 mg/dL Ferritin 216 30-400 ng/mL Total Bilirubin 0.4 0.2-1.0 mg/dL Direct Bilirubin 0.1 0.0-0.3 mg/dL Aspartate Amino Transf (AST/SGOT) 17 10-37 U/L Alanine Aminotransferase (ALT/SGPT) 10 L 12-78 U/L Alkaline Phosphatase 59 50-136 U/L Total Creatine Kinase 115 21-232 U/L B-Type Natriuretic Peptide 854 H 0-100 pg/mL Total Protein 6.7 6.0-8.3 g/dL Albumin 2.8 L 3.5-5.0 g/dL Amylase Level 153 H 25-115 U/L Lipase 217 H 16-77 U/L Procalcitonin 1.47 H 0.05-0.5 ng/mL Thyroid Stimulating Hormone (TSH) 4.50 #H 0.36-3.74 uIU/mL Test 07/30/25 15:18 07/30/25 14:18 07/30/25 13:45 Range/Units Hemoglobin A1c 5.2 4.0-6.0 % Estimated Average Glucose (eAG) 103 70-126 mg/dL Influenza Type A Antigen Negative For Type A NEGATIVE Influenza Type B Antigen Negative For Type B NEGATIVE SARS-CoV-2 Antigen (Rapid) PRESUMPTIVE NEGATIVE NEGATIVE Urine Color COLORLESS YELLOW Urine Appearance CLEAR CLEAR Urine pH 6.0 5.0-8.0 Urine Specific [place] 1.008 1.001-1.031 Urine Protein 70 H NEGATIVE mg/dL Urine Glucose (UA) 70 H NEGATIVE mg/dL Urine Ketones NEGATIVE NEGATIVE mg/dL Urine Occult Blood +- (TRACE) H NEGATIVE Urine Nitrate NEGATIVE NEGATIVE Urine Bilirubin NEGATIVE NEGATIVE mg/dL Urine Urobilinogen 0.2 0.2-1.0 mg/dL Urine Leukocyte Esterase NEGATIVE NEGATIVE Shirin/uL Urine RBC 0-1 0-1 /HPF Urine WBC 2-5 H 0-1 /HPF Urine Squamous Epithelial Cells RARE 0-2 /HPF Urine Bacteria None None Seen /HPF Current Medications Medications (Trade) Dose Ordered Sig/Curly Route PRN Reason Start Time Stop Time Status Last Admin Dose Admin Acetaminophen (TYLenol 325MG TAB) 650 mg Q4H PRN PO MILD PAIN (1-3) 07/30/25 14:30 08/29/25 14:29 Acetaminophen (TYLenol 325MG TAB) 650 mg Q6H PRN PO TEMPERATURE GREATER THAN 101.5 07/30/25 14:30 08/29/25 14:29 Al Hydroxide/Mg Hydroxide (MAALox PLUS 30ML) 30 ml Q6H PRN PO INDIGESTION 07/30/25 14:30 08/29/25 14:29 Amlodipine Besylate (NorvASC 5MG TAB) 10 mg DAILY PO 07/31/25 09:00 08/30/25 08:59 07/31/25 10:01 10 MG Dextrose (D50w) 50 ml AD PRN IV HYPOGLYCEMIA PROTOCOL 07/30/25 14:00 08/29/25 13:59 Diphenhydramine HCl (BENAdryl INJ) 25 mg Q6H PRN IV SEVERE ITCHING/RASH 07/30/25 14:30 08/29/25 14:29 07/31/25 04:39 25 MG Famotidine (Pepcid 20mg Vial) 20 mg BID PRN IV NAUSEA/VOMITING 07/30/25 14:30 07/30/25 14:11 DC Famotidine (Pepcid 20mg Vial) 20 mg Q48H IV 07/30/25 21:00 07/31/25 08:48 DC 07/30/25 21:35 20 MG Famotidine (Pepcid 20mg Tab) 20 mg Q48H PO 07/31/25 09:00 07/31/25 08:51 DC Famotidine (Pepcid 20mg Tab) 20 mg Q48H PO 08/01/25 09:00 08/31/25 08:59 Furosemide (LASix 40MG VIAL) 40 mg ONCE STAT IV 07/30/25 13:33 07/30/25 13:39 DC 07/30/25 14:01 40 MG Furosemide (LASix 40MG VIAL) 80 mg Q12H IV 07/30/25 20:00 08/29/25 19:59 07/31/25 10:00 80 MG Glucagon (Glucagon 1mg Kit) 1 mg AD PRN IM HYPOGLYCEMIA PROTOCOL 07/30/25 14:00 08/29/25 13:59 Guaifenesin/ Dextromethorphan (RobiTUSSin DM 200/20MG 10ML) 10 ml Q4H PRN PO COUGH 07/30/25 14:30 08/29/25 14:29 Home Med (Home Medication) (Cholecalciferol (Vitamin D3) 25 MCG) DAILY PO 07/31/25 09:00 08/30/25 08:59 07/31/25 10:01 1 EACH Hydralazine HCl (APRESOLine 20MG INJ) 10 mg Q6H PRN IV For:SBP above 160;DBP above 90 07/30/25 14:30 08/29/25 14:29 Hydralazine HCl ([id number] TAB) 25 mg TID PO 07/31/25 09:00 08/30/25 08:59 Insulin Human Regular (humuLIN R 100 UNIT/ML 3ML) INSULIN SLIDING SCAL... ACHS SQ 07/30/25 16:30 08/29/25 16:29 Lactulose (Constulose 20gm/ 30ml Udcup) 20 gm BID PRN PO CONSTIPATION 07/30/25 14:30 08/29/25 14:29 Levothyroxine Sodium (SYNTHroid 75MCG TAB) 75 mcg SYN PO 08/01/25 06:30 08/31/25 06:29 Magnesium Sulfate 50 ml @ 0 mls/hr PROTOCOL PRN IV other 07/30/25 14:00 08/29/25 13:59 Metoprolol Succinate (TopROL XL) 50 mg DAILY PO 07/31/25 09:00 08/30/25 08:59 Miscellaneous Medication (Cholecalciferol (Vitamin D3) (Vitamin D3)) 1 cap DAILY PO 07/31/25 09:00 07/31/25 08:48 DC Nitroglycerin (Nitrostat) 0.4 mg PROTOCOL PRN SL CHEST PAIN 07/30/25 14:30 08/29/25 14:29 Ondansetron HCl (zoFRAN 4MG INJ) 4 mg Q6H PRN IV NAUSEA/VOMITING 07/30/25 14:30 08/29/25 14:29 Sevelamer HCl (RENAgel 800 MG TAB) 800 mg TIDMEALS PO 07/31/25 12:00 08/30/25 11:59 Sodium Bicarbonate (Sodium Bicarbonate) 650 mg TID PO 07/31/25 09:00 08/30/25 08:59 07/31/25 10:01 650 MG Tamsulosin HCl (FloMAX) 0.4 mg DAILY PO 07/31/25 09:00 08/30/25 08:59 07/31/25 10:00 0.4 MG Vitamin B Complex/ Vit C/Folic Acid (Nephrovite Tablet) 1 cap DAILY PO 07/31/25 09:00 08/30/25 08:59 07/31/25 10:00 1 CAP Zolpidem Tartrate (AmbIEN) 5 mg HS PRN PO INSOMNIA 07/30/25 14:30 08/29/25 14:29 DIAGNOSTICS / RADIOLOGY: [ ] ASSESSMENT: [ Acute hypoxic Respiratory Failure POA Fluid Overload POA loida on CKD in need of dialysis POA acute blood loss requiring 1 prbc transfusion POA multifactorial anemia POA uncontrolled hypertension POA electrolite imbalance Na 134 POA polycystic kidney disease POA hypothyroidism POA maxillry sinusis BPH ] PLAN hospice consulted am labs nephro on the case ATTESTATION BY PHYSICIAN I have seen and examined the patient. I reviewed the documentation, medical decision making, and treatment plan as noted by the mid-level provider above. I agree with the findings and plan of care. SHAYY SIGALA MD, KATARZYNA B FEEDER OPERATOR Jul 31, 2025 10:24
--- NOTE | 2025-07-31 12:27 | NUR ---
REFUSAL FOR HOSPICE Per Franchesca, ER Charge nurse, pt needing dialysis and is refusing, also refusing treatment. MD and MOLD REPAIR TECHNICIAN spoke to pt and and informed if he was refusing dialysis he needed hospice. Sw met with pt and his at bedside. Informed pt of order for hospice. Pt stated "I don't want hospice". Asked pt if he understood hat with out dialysis he would . "Yes I understand, but I do not want hospice". Explained to pt that hospice nurse could monitor systems and assist him and family at home, "I don't want hospice". stated, you can't force him to have hospice". SW explained that if they feel at later time they need hospice, to contact pt's PCP and he can arrange at his office. Pt and voiced understanding. Sw informed Addis and PHYLLIS Maddox of above
--- NOTE | 2025-07-31 14:58 | NUR ---
ATTEMPTED TO CALL REPORT AT THIS TIME. NO ANSWER.
--- NOTE | 2025-07-31 15:29 | NUR ---
REPORT GIVEN TO DEBORA AT THIS TIME
[2025-07-31 16:00] VITALS: BP 151/91; PULSE 82; RESP 19; TEMP 98.3
[2025-07-31 16:05] VITALS: BP 151/91; PULSE 82; RESP 19; TEMP 98.3
--- NOTE | 2025-07-31 16:19 | NUR ---
RECEIVED PATIENT FROM ER PATIENT TRANSFERRED TO BED AND ORIENTATED TO ROOM. VITAL SIGNS WERE CHECKED. BED SET TO LOWEST POSITION. BEDSIDE TABLE MOVED NEAR PATIENT. ANSWERED ANY QUESTIONS AND CONCERNS PATIENT HAD. CALL LIGHT WITHIN REACH OF PATIENT.
[2025-07-31] MEDS: EPOETIN ALFA-EPBX (NON-ESRD) 10,000 UNIT/ML VIAL SQ SCH (17:30)
--- NOTE | 2025-07-31 17:47 | HMCSR ---
APPROVED REPORT EXAM: Two-dimensional and M-mode echocardiogram with Doppler and color Doppler. INDICATION ICD: 2D Dimensions RVDd4.4 cmLVEF(%)52.2 (>50%)LVED Vol(simp.)182.3 mL IVSd1.2 (0.7-1.1cm)FS(%)27 %LVES Vol(simp.)94.9 mL LVDd5.5 (3.8-5.6cm)LA (2D)4.8 (1.6-4.0cm)LVEF(%, simp.)48 % PWd1.6 (0.7-1.1cm)Ao Root(2D)3.5 (2.0-3.7cm)LA ESV INDEX (BP)79.06 mL/m2 LVDs4.0 (2.5-4.0cm)LVOT diam2.5 (1.8-2.4cm) IVC diam2.7 cm Deformation Strain Apical 4-14.5 % Apical 2-15.3 % Apical 3-12.8 % Global Strain-14.2 % M-Mode Dimensions EPSS1.3 cm LA (MM)4.9 (1.6-4.0cm) Ao Root(MM)3.3 (2.0-3.7cm) Aortic Valve AoV Vmax1.7 m/Jadyn Peak GR11.8 mmHgLVOT Vmax1.3 m/s AoV VTI0.4 mAo Mean GR6.3 mmHgLVOT VTI0.30 m CAMERON (VMAX)3.74 cm2AVA (VTI) 4.0 cm2 Mitral Valve MV E Blug992.7 cm/sDECEL Awsf158 ms MV A Hqlj096.9 cm/sP 1/2 T77 ms E/A ratio1.0MVA (PHT)2.8 cm2 TDI E/E' Heotud69.0E/E' Iltzihk93.0 Medial E' Peak V5.55 cm/sLateral E' Peak V5.86 cm/s Left Ventricle The left ventricle is dilated. Mild concentric left ventricular hypertrophy. LVEF is 35-40%. Stage 2 diastolic dysfunction. Right Ventricle The right ventricle is normal size. The right ventricular systolic function is normal. Atria The left atrium is severely dilated. The right atrium size is normal. Aortic Valve The aortic valve is normal in structure. No aortic regurgitation is present. There is no aortic valvu lar stenosis. Mitral Valve The mitral valve is normal in structure. Mitral regurgitation is mild. There is no mitral valve steno sis. Tricuspid Valve The tricuspid valve is normal in structure. There is no tricuspid valve regurgitation noted. Pulmonic Valve The pulmonary valve is normal in structure. There is no pulmonic valvular regurgitation. Great Vessels The aortic root is normal in size. IVC is dilated and collapses >50% with inspiration. Pericardium Trace pericardial effusion. Conclusion The left ventricle is dilated. Mild concentric left ventricular hypertrophy. LVEF is 35-40%. Stage 2 diastolic dysfunction. The right ventricle is normal size. The right ventricular systolic function is normal. The left atrium is severely dilated. The right atrium size is normal. Mitral regurgitation is mild. IVC is dilated and collapses >50% with inspiration. Trace pericardial effusion.
[2025-07-31] MEDS ORDERED: COMPOUND IV MISC 1 EACH IVSOLN MISC PRN (18:00)
[2025-07-31 19:00] VITALS: BP 153/85; PULSE 82; RESP 20; TEMP 98.6
[2025-07-31 20:00] VITALS: O2SAT 98
--- NOTE | 2025-07-31 20:10 | PN ---
SUBJECTIVE: A 70-year-old male with a history of known polycystic kidney disease. The patient is admitted with uremia. The patient has been having oral intake, generalized fatigue. The patient also with significant anemia and was given IV iron and Epogen. The patient's creatinine is quite elevated. I did have a long discussion with the patient. I also discussed the case in detail with the primary team. The patient is refusing any form of renal replacement therapy. The patient now is wishing for hospice care and the patient is being seen for all of the above. REVIEW OF SYSTEMS: GENERAL: He is feeling weak and tired. HEENT: No change in vision. No change in hearing. CARDIOVASCULAR: There is no current chest pain or palpitations. PULMONARY: Denies any shortness of breath. GASTROINTESTINAL: Appetite is poor. MUSCULOSKELETAL: Complains of weakness. PHYSICAL EXAMINATION: VITAL SIGNS: Blood pressure is 154/78, pulse 70. He is afebrile. GENERAL: He is a chronically ill, elderly, lying in bed on the medical floor. HEENT: Head is atraumatic. Pupils are equal, round, and reactive to light. Oropharynx is without exudate. Nares clear. NECK: There is no JVP. There is no thyromegaly. No mass. CARDIOVASCULAR: Regular. There is no S3, S4, or gallop. LUNGS: Coarse with equal thoracic movement. ABDOMEN: Soft, nondistended, nontender. EXTREMITIES: No clubbing, no cyanosis. NEUROLOGICAL: He is awake. He is alert. LABORATORY DATA: BUN 118, creatinine 12, hemoglobin 7.4, and hematocrit 22. IMPRESSION: * Acute on chronic renal failure. * Polycystic kidney disease. * Anemia. * Hypertension. PLAN: I did discuss with the primary team the patient is refusing any form of renal replacement therapy. I did discuss with the patient if that is the case, he would benefit from hospice care. We will have case management evaluate. The patient has been given a dose of IV iron as well as Epogen for the anemia. We will continue to follow closely. The patient will sign for the DNR and we will follow while in the hospital. TID: [id number] RECEIPT: [id number]
[2025-08-01] VITALS: BP 154/83; PULSE 85; RESP 20; TEMP 99.6
[2025-08-01 04:29] VITALS: BP 136/73; PULSE 83; RESP 20; TEMP 98.3
[2025-08-01 05:17] LABS: IMMATURE GRANULOCYTE ABSOLUTE 0.04 K/uL (0-1); NUCLEATED RED BLOOD CELLS 0.0 % (0.0-0.19); PLATELET COUNT (AUTO) 137 K/uL (130-400); RED BLOOD CELL COUNT(AUTO) 2.65 MIL/uL (4.50-6.20); RED CELL DISTRIBUTION WIDTH 15.7 % (11.0-15.5); WHITE BLOOD COUNT (AUTO) 6.5 K/uL (4.8-10.8)
[2025-08-01 05:36] LABS: ASPARTATE AMINOTRANSFERASE 15.0 U/L (10-37); GLOMERULAR FILTR. RATE CALC 4.0 mL/min (>90); GLUCOSE,RANDOM 65.0 mg/dL (70-105); SODIUM SERUM 134.0 mmol/L (136-145); TOTAL PROTEIN, SERUM 6.6 g/dL (6.0-8.3)
[2025-08-01 06:06] LABS: CREATININE 12.8 mg/dL (0.5-1.3); UREA NITROGEN, BLOOD 112.0 mg/dL (7-18)
[2025-08-01 08:02] VITALS: BP 133/65; PULSE 80; RESP 18; TEMP 99
[2025-08-01] MEDS: FAMOTIDINE 20MG TAB PO SCH (09:29)
--- NOTE | 2025-08-01 11:00 | NUR ---
AMA and patient education Patient educated on the disease process of kidney failure and how symptoms that the he is likely to experience will worsen over time and ultimately lead to . He states that his brother was on dialysis and contracted an infection which ultimately lead to his .He was also educated on the dialysis process and dialysis access process in an effort to assuage his fear surrounding dialysis. Patient is still refusing to consent to any dialysis. He has signed the paperwork to leave the hospital against medical advice and he would like to go home. Patient and spouse advised that they should seek care through an emergency room if they decide to change their minds on the treatment options. Patient and spouse also advised that their primary care management specialist can refer them for hospice care if and when they decide to move in that direction as well. Patient's two peripheral IVs removed without incident. No bleeding or signs of infection. Patient was taken downstairs via wheelchair by the RESISTOR TESTER.
--- NOTE | 2025-08-01 12:15 | DS ---
Discharge Summary Hospital Course Summary: DATE OF ADMISSION:[07/30/2025] DATE OF DISCHARGE:[08/01/2025] DISPOSITION:[Patient left AMA] CONDITION:[Critical, patient left AMA] CONSULTANTS:[Compression Molding Machine Tender, hospice] FOLLOW UP APPOINTMENTS:[PCP 2 to 3 days. Comp[employer] Molding Machine Tender as soon as possible, hospice if desired] PROCEDURES:[None] IMAGING: report attached to summary MICROBIOLOGY: report attached to summary ACTIVITY:[Independent] HOME MEDICATIONS: see [facility] NEW MEDICATIONS:[Patient left against medical advice] EMERGENCY INSTRUCTIONS: The patient was instructed to present to the nearest Emergency departmentr or call 911 once their symptoms will return or worsen Warehouse Order Filler(s): Patient is 69 years old male with a past medical history of DM, Htn, hld, polycystic kidney disease, CKD refusing dialysis, BPH, hypothyroidism, , lower back sx, sinusitis, who came to ER with complain of shortness of breath for past 1 month. As per pt, he was at his PCP, where he was advised to go to ER for further evaluation of SOB and possibly blood transfusion. On admission patients labs BUN 117 Cr12.4 GFR 4 . Patient stated that he is not on dialysis, and refuses to start. Providers had an extensive conversation with patient regards refusing dialysis and goals of care. Patient during hospitalization proceed with DNI and DNR. Hospice was consulted as well, unfortunately refused as well. Today patient decided to leave AMA, contunes to refuse dialysis and hospice. Patient left AMA at 11:04. at the bedside Procedure(s): REVIEW OF SYSTEMS CONSTITUTIONAL: Denies fevers, chills, or night sweats. No unintentional weight loss reported. NEUROLOGICAL: Denies headache, amaurosis fugax, motor weakness, sensory deficit, vertigo/spinning sensation, gait abnormalities, or tremors. ENT: No hearing loss, otalgia, otorrhea, rhinitis, rhinorrhea, hoarseness, or sore throat. CARDIOVASCULAR: Denies any exertional angina, dyspnea on exertion, orthopnea, paroxysmal nocturnal dyspnea, palpitations, life-threatening arrhythmias, claudication. PULMONARY: Denies any cough, phlegm/sputum, hemoptysis, pleuritic chest pain. Complains of shortness of breath SLEEP: Denies morning headaches, daytime somnolence or napping. Denies difficulty falling asleep, staying asleep, waking from sleep. Denies knowledge of snoring. GASTROINTESTINAL: Denies any type of dysphagia to either liquids or solids. D enies nausea, vomiting, pyrosis, early satiety, abdominal pain, diarrhea, constipation, or changes in stool consistency or caliber. Denies coffee-ground emesis, hematemesis, hematochezia, or melanotic stools. GENITOURINARY: Denies frequency, urgency, nocturia, hematuria or incontinence (Storage/Irritative symptoms.) Low urinary stream, straining to void, urinary intermittency or hesitancy, splitting of the voiding stream, terminal dribbling. ENDOCRINOLOGIC: Denies polyuria, polydipsia, polyphagia or heat/cold intolerances. HEMATOLOGIC: Denies thrombophilia/previous clots, or coagulopathy/bleeding disorders. ONCOLOGIC: Denies personal history of malignancy. DERMATOLOGIC: Denies rashes or pruritus. PSYCHIATRIC: Denies any suicidal or homicidal ideation. Denies hallucinations. PHYSICAL EXAM GENERAL APPEARANCE: The patient is awake, alert, and oriented, in no acute cardiopulmonary distress. NEUROLOGICAL: Cranial nerves II-XII grossly intact. Motor is 5/5 in bilateral upper and lower extremities proximal to distal. No sensory deficits. HEENT: Face is symmetric. Pupils are equal and reactive. Extraocular movements are intact. NECK: Supple. No JVD. No thyromegaly. No submental, submandibular, pre- /postauricular, occipital or supraclavicular lymphadenopathy. CHEST: Normal chest expansion. No Telemetry. LUNGS: Absence of any rales, rhonchi or any wheezing. CARDIOVASCULAR: Regular. S1 and S2 normal. No appreciable rubs, murmurs or gallops. ABDOMEN: Soft, nontender, and nondistended. There is no rebound, voluntary guarding, or rigidity. : Deferred. No Alexander. EXTREMITIES: Non-edematous and not cyanotic. No clubbing. Good capillary refill. SKIN: No skin breakdown. Assessment/Plan: ASSESSMENT: [ Acute hypoxic Respiratory Failure POA Fluid Overload POA loida on CKD in need of dialysis POA refuses dialysis POA refuses hospice acute blood loss requiring 1 prbc transfusion POA multifactorial anemia POA uncontrolled hypertension POA electrolite imbalance Na 134 POA polycystic kidney disease POA hypothyroidism POA maxillry sinusis BPH ] Home Medications: Active Scripts Sodium Bicarbonate (Sodium Bicarbonate) 650 Mg Tablet, 650 MG PO TID, #90 TAB 1 Refill Prov:SHAYY SIGALA MD 07/12/23 [Sevelamer Hcl] 800 MG/TAB TABLET No Conflict Check, 800 MG PO TIDMEALS, #90 1 Refill Prov:SHAYY SIGALA MD 07/12/23 Hydralazine HCl (Apresoline) 25 Mg Tab, 25 MG PO TID, #90 TAB 1 Refill Prov:SHAYY SIGALA MD 07/12/23 [Folic Acid/Vitamin B Comp W-C] 1 CAP TAB No Conflict Check, 1 CAP PO Q24H, #30 1 Refill Prov:SHAYY SIGALA MD 07/12/23 Reported Medications Metoprolol Succinate (Metoprolol Succinate) 50 Mg Tab.er.24h, 1 TAB PO DAILY 07/30/25 Amlodipine Besylate (Amlodipine Besylate) 10 Mg Tablet, 1 TAB PO DAILY 07/30/25 Cholecalciferol (Vitamin D3) (Vitamin D3) 50 Mcg (2000 Unit) Capsule, 1 CAP PO DAILY for 30 Days, #30 CAP 0 Refills 07/30/25 Cholecalciferol (Vitamin D3) (Vitamin D3) 25 Mcg Capsule, 25 MCG PO DAILY, CAP 07/10/23 Levothyroxine Sodium (Levothyroxine) 75 Mcg Capsule, 75 MCG PO DAILY, CAP 07/10/23 Tamsulosin HCl (Flomax) 0.4 Mg Cap.er.24h, 0.4 MG PO DAILY, CAPSULE. 07/10/23 Famotidine (Famotidine) 40 Mg Tablet, 40 MG PO DAILY, TAB 07/10/23 Discontinued Reported Medications Spironolactone (Aldactone) 25 Mg Tablet, 12.5 MG PO DAILY, TAB 07/10/23 Discontinued Scripts Amoxicillin/Potassium Clav (Amox Tr-K Clv 875-125 mg Tab) 875 Mg-125 Mg Tablet, 1 EACH PO BID for 7 Days, #14 TAB 0 Refills Prov:CONNER LI 06/26/24 Ciprofloxacin/Hydrocortisone (Cipro Hc Otic Suspension) 0.2 %-1 % Drops.susp, 4 DROP AD BID for 5 Days, #10 ML Prov:CONNER LI 06/26/24 Metoprolol Tartrate (Lopressor 50Mg Tab) 50 Mg Tab, 50 MG PO BID, #60 TAB 1 Refill Prov:SHAYY SIGALA MD 07/12/23 Amlodipine Besylate (Norvasc 5Mg Tab) 5 Mg Tablet, 10 MG PO DAILY, #30 TAB 1 Refill Prov:SHAYY SIGALA MD 07/12/23 Sodium Bicarbonate (Sodium Bicarbonate) 650 Mg Tablet, 650 MG PO TID, #90 TAB 1 Refill Prov:SHAYY SIGALA MD 07/12/23 Time spent arranging discharge: 31-60 minutes ATTESTATION BY PHYSICIAN I have seen and examined the patient. I reviewed the documentation, medical decision making, and treatment plan as noted by the mid-level provider above. I agree with the findings and plan of care. SHAYY SIGALA MD, KATARZYNA B CP BLEACHER OPERATOR Aug 01, 2025 12:14
== END 2025-08-01 11:45 | disposition home or self-care (01) ==
LOC: EDH 11:12 → EDHIP 14:01 → 3BH 07-31 16:05
PROVIDERS: ADMIT Internal Medicine; ATTEND Internal Medicine
DX: J96.01 Acute respiratory failure with hypoxia (principal); I13.10 Hypertensive heart and chronic kidney disease without heart failure, with stage 1 through stage 4 chronic kidney disease, or unspecified chronic kidney disease; E11.22 Type 2 diabetes mellitus with diabetic chronic kidney disease; N18.9 Chronic kidney disease, unspecified; N17.9 Acute kidney failure, unspecified; E87.70 Fluid overload, unspecified; N40.0 Benign prostatic hyperplasia without lower urinary tract symptoms; E87.1 Hypo-osmolality and hyponatremia; E78.5 Hyperlipidemia, unspecified; D72.819 Decreased white blood cell count, unspecified; D69.6 Thrombocytopenia, unspecified; D64.9 Anemia, unspecified; E03.9 Hypothyroidism, unspecified; Q61.3 Polycystic kidney, unspecified; M54.50 Low back pain, unspecified; J32.0 Chronic maxillary sinusitis; M79.89 Other specified soft tissue disorders; Z20.822 Contact with and (suspected) exposure to COVID-19; Z79.899 Other long term (current) drug therapy; Z98.890 Other specified postprocedural states
CPT/HCPCS: 96374; 96376 ×3; 36430; 96375 ×2; 99285; 83036; 80048 ×2; 83880 ×2; 85025 ×3; 86850; 86900; 86901; 86923; 87086; 87804 ×2; 82948 ×8; 87426; 81001; 36415 ×3; 71045; 93005; 82150; 84443; 83540; 83550; 82550; 80076; 83735 ×2; 84100; 84550; 82728; 82140; 83690; 83605; 93306; 93356; 97161; 97116; 84145; 80053; G0378 ×46; P9016; J3490; J1938 ×6; J1200 ×2; J1756; J7050; Q5106